=== PATIENT | female | born 1975 | race African-American/Black ===

== ENCOUNTER 2019-06-10 21:27 | Emergency (ER) | payer SELFPAY ==
[~2019-06-10] VITALS: Ht 165.1 cm; Wt 55.0 kg
[2019-06-11 00:10] LABS: CHLORIDE 113 mEq/L (98-107)
[2019-06-11 00:14] LABS: ETHANOL BLOOD < 10 mg/dL
[2019-06-11 00:18] LABS: BASOPHILS % 0.9 % (0.0-2.0); EOSINOPHILS % 4.2 % (0.0-5.0); HEMATOCRIT. 33.1 % (36.0-48.0); HEMOGLOBIN. 10.8 g/dL (12.0-16.0); LYMPHOCYTES % 46.9 % (20.0-50.0); MEAN CORPUSCULAR HEMOGLOBIN 28.3 pg (28.0-32.0); MEAN CORPUSCULAR VOLUME 86.5 fL (81.0-99.0); MEAN PLATELET VOLUME 8.5 fl (7.4-10.4); MONOCYTES % 12.5 % (2.0-8.0); NEUTROPHILS % 35.5 % (40.0-76.0); PLATELET 198 x1000/uL (130-400); RED BLOOD CELL COUNT 3.83 mill/uL (4.2-5.4); RED CELL DISTRIBUTION WIDTH 13.9 % (11.6-14.6)
[2019-06-11 00:25] LABS: CLARITY URINE CLEAR (CLEAR); COLOR URINE YELLOW (YELLOW); KETONES URINE TRACE (NEGATIVE); LEUKOCYTE ESTERASE URINE TRACE (NEGATIVE); NITRITE URINE NEGATIVE (NEGATIVE); OCCULT BLOOD URINE 3+ (NEGATIVE); PH URINE 7.5 (4.5-8.0); PROTEIN URINE TRACE (NEGATIVE); SPECIFIC GRAVITY URINE 1.035 (1.005-1.030)
[2019-06-11 01:03] LABS: *AMPHETAMINES SCREEN URINE NEGATIVE (NEGATIVE); *BARBITURATES SCREEN URINE NEGATIVE (NEGATIVE); *BENZODIAZEPINES SCREEN URINE NEGATIVE (NEGATIVE); *COCAINE SCREEN URINE NEGATIVE (NEGATIVE); METHADONE URINE SCREEN NEGATIVE (NEGATIVE); OPIATES URINE SCREEN NEGATIVE (NEGATIVE)
[2019-06-11 01:04] LABS: CANNABINOID URINE SCREEN NEGATIVE (NEGATIVE); PHENCYCLIDINE URINE SCREEN NEGATIVE (NEGATIVE)
[2019-06-12] MEDS ORDERED: LORAZEPAM 1MG TABLET PO ONE ×2 (03:30→22:00)
[2019-06-12] MEDS ORDERED: OLANZAPINE 10 MG/VIAL IM ONE (22:00)
[2019-06-14] MEDS ORDERED: OLANZAPINE 10 MG/VIAL IM ONE ×2 (00:15→00:45)
[2019-06-14] MEDS ORDERED: LORAZEPAM 1MG TABLET PO ONE ×2 (00:15→00:45)
[2019-06-14 03:16] VITALS: BP 110/75
== END 2019-06-14 07:10 ==
LOC: ER 21:27
DX: F20.0 Paranoid schizophrenia (principal); R45.851 Suicidal ideations; F31.9 Bipolar disorder, unspecified; F41.9 Anxiety disorder, unspecified; F12.10 Cannabis abuse, uncomplicated; F03.90 Unspecified dementia, unspecified severity, without behavioral disturbance, psychotic disturbance, mood disturbance, and anxiety; F17.210 Nicotine dependence, cigarettes, uncomplicated; Z75.1 Person awaiting admission to adequate facility elsewhere; Z90.710 Acquired absence of both cervix and uterus; Z71.6 Tobacco abuse counseling
CPT/HCPCS: 36415; 80053; 80305; 80320; 81003; 81025; 85025; 99284; 99406; J3490; G0480

== ENCOUNTER 2022-04-29 18:42 | Observation (INO) | payer MEDICAID ==
[~2022-04-29] VITALS: Ht 170.2 cm; Wt 90.3 kg
[2022-04-29 20:33] LABS: HCG SCREEN NEGATIVE
== END 2022-04-29 20:25 | disposition home or self-care (01) ==
LOC: 8 EST LDRP 18:42
PROVIDERS: ADMIT Obstetrics & Gynecology; ATTEND Obstetrics & Gynecology
DX: R53.83 Other fatigue (principal); F12.90 Cannabis use, unspecified, uncomplicated; Z32.02 Encounter for pregnancy test, result negative; Z79.899 Other long term (current) drug therapy
CPT/HCPCS: 36415; 76815; 84702; 84703; G0378; 99281; G0379